=== PATIENT | female | born 1985 | race Two or more races ===

== ENCOUNTER → 2016-06-08 | Outpatient (CLI) | payer MEDICARE ==
[~2016-06-08] MED LIST: ACETAMINOPHEN325 MG PO; AUGMENTIN875 MG PO; BUPROBAN150 MG PO; BUSPAR5 MG PO; BUSPIRONE HCL15 MG PO; CARAFATE1 GM PO; CELEXA20 MG PO; CELEXA40 MG PO; CELLCEPT250 M1 PO; CELLCEPT500 MG PO; COLACE100 MG PO; CYMBALTA60 MG PO; DELTASONE1 MG PO; DELTASONE2.5 MG PO; DELTASONE5 MG PO; DEXILANT60 MG PO; DULCOLAX10 MG R; FERROUS SULFAT325 MG PO; FLORASTOR250 MG PO; GABAPENTIN300 MG PO; KLONOPIN1 M1 PO; LASIX40 M1 PO; LASIX80 MG PO; LEXAPRO20 MG PO; MIRALAX17 GM PO; NAPROSYN250 MG; NAPROSYN500 MG PO; NEURONTIN600 MG PO; NORCO 5-325 MG1 TAB PO; NUCYNTA50 MG PO; PAIN RELIEVER325 MG PO; PHENERGAN25 M1 PO; PLAQUENIL200 M1 PO; PLAQUENIL200 MG PO; PRINIVIL5 MG PO; PROAIR HFA8.5 GM INH; PROLIA60 MG/ML IM; ROBITUSSIN DM120 ML PO; TOPROL XL25 MG PO; ULTRAM50 MG PO; WELLBUTRIN XL300 M2 PO; XANAX0.5 MG PO; XARELTO10 MG; XARELTO20 MG PO; Z-PAK250 MG PO; ZITHROMAX500 MG PO; ZOFRAN8 M1 PO
[2016-06-08 15:17] LABS: BASOPHIL # 0.1 K/uL (0.0-0.2); BASOPHIL % 0.5 %; EOSINOPHIL # 0.1 K/uL (0.0-0.5); EOSINOPHIL % 0.7 %; HEMATOCRIT 42.8 % (33.0-46.0); HEMOGLOBIN 13.8 g/dL (11.0-15.0); IMMATURE GRANULOCYTE % 0.2 %; LYMPHOCYTE # 1.3 K/uL (0.8-4.0); LYMPHOCYTE % 10.3 %; MCH 31.5 pg (27.0-34.0); MCHC 32.2 gm/dL (32.0-36.5); MCV 97.7 fl (83.0-98.0); MONOCYTE # 0.4 K/uL (0.0-1.0); MONOCYTE % 3.2 %; MPV 9.7 fl (9.4-12.4); NEUTROPHIL # (ANC) 10.5 K/uL (1.8-7.8); NEUTROPHIL % 85.1 %; NRBC % 0 /100WBC (0-0.00); PLATELET COUNT 381 K/uL (150-450); RBC 4.38 M/uL (3.50-5.00); RDW-CV 14.7 % (11.9-14.6); WBC 12.3 K/uL (4.0-11.0)
[2016-06-08 15:29] LABS: PROTIME 10.4 SECONDS (9.6-11.1)
[2016-06-08 15:39] LABS: ALBUMIN 3.8 gm/dL (3.5-5.0); ANION GAP 10.8 (10.0-19.0); CALCIUM 8.3 mg/dL (8.5-10.5); CREATININE 1.3 mg/dL (0.5-1.1); POTASSIUM 3.8 mMol/L (3.7-5.1); TOTAL BILIRUBIN 0.4 mg/dL (0.0-1.5)
[2016-06-08 15:48] LABS: TOTAL PROTEIN 9.4 g/dL (6.0-8.4)
== END | disposition disaster alternative care site (69) ==
LOC: GOPD 12:30
PROVIDERS: Internal Medicine
PROC: 0W9G3ZZ Drainage of Peritoneal Cavity, Percutaneous Approach (ICD-10-PCS; principal; 2016-06-08)
DX: R18.8 Other ascites (principal)

== ENCOUNTER 2016-09-05 07:51 | Emergency (ER) | payer MEDICARE ==
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
[2016-09-05 08:43] LABS: BILIRUBIN URINE NEGATIVE (NEGATIVE); BLOOD URINE 25 /UL (NEGATIVE); COLOR URINE STRAW (YELLOW); GLUCOSE URINE NEGATIVE (NEGATIVE); KETONE URINE NEGATIVE (NEGATIVE); LEUKOCYTES URINE NEGATIVE /UL (NEGATIVE); NITRITE URINE NEGATIVE (NEGATIVE); PROTEIN URINE 15 mg/dL (NEGATIVE); SPEC GRAVITY URINE 1.015 (1.003-1.035); TURBIDITY URINE CLEAR (CLEAR); UROBILINOGEN URINE NORMAL (NORMAL)
[2016-09-05 08:45] LABS: BASOPHIL # 0.1 K/uL (0.0-0.2); BASOPHIL % 0.4 %; EOSINOPHIL # 0.2 K/uL (0.0-0.5); EOSINOPHIL % 1.3 %; HEMATOCRIT 39.2 % (33.0-46.0); HEMOGLOBIN 12.9 g/dL (11.0-15.0); IMMATURE GRANULOCYTE # 0.1 K/uL (0.0-0.3); IMMATURE GRANULOCYTE % 0.5 %; LYMPHOCYTE # 1.3 K/uL (0.8-4.0); LYMPHOCYTE % 9.9 %; MCH 31.9 pg (27.0-34.0); MCHC 32.9 gm/dL (32.0-36.5); MONOCYTE # 1.1 K/uL (0.0-1.0); MONOCYTE % 8.5 %; MPV 9.8 fl (9.4-12.4); NEUTROPHIL # (ANC) 10.2 K/uL (1.8-7.8); NEUTROPHIL % 79.4 %; NRBC % 0 /100WBC (0-0.00); PLATELET COUNT 309 K/uL (150-450); RBC 4.04 M/uL (3.50-5.00); RDW-CV 13.6 % (11.9-14.6); WBC 12.9 K/uL (4.0-11.0)
[2016-09-05 08:55] LABS: BACTERIA URINE FEW (NEGATIVE); RBC URINE 0-2 #/HPF (NEGATIVE); WBC URINE 0-2 #/HPF (NEGATIVE)
[2016-09-05 09:08] LABS: ALBUMIN 3.5 gm/dL (3.5-5.0); ALK PHOS 57 IU/L (33-138); ALT 17 IU/L (12-78); ANION GAP 9.6 (10.0-19.0); AST 10 IU/L (10-40); BLOOD UREA NITROGEN 27 mg/dL (6-24); CALCIUM 8.4 mg/dL (8.5-10.5); CHLORIDE 107 mMol/L (96-110); CO2 26 mMol/L (22-32); ESTIMATED GFR (MDRD EQUATION) > 60; POTASSIUM 3.6 mMol/L (3.7-5.1); SODIUM 139 mMol/L (135-145); TOTAL BILIRUBIN 0.3 mg/dL (0.0-1.5); TOTAL PROTEIN 7.6 g/dL (6.0-8.4)
== END 2016-09-05 11:51 | disposition disaster alternative care site (69) ==
LOC: GMED 07:51
PROVIDERS: Emergency Medicine
DX: N83.202 Unspecified ovarian cyst, left side (principal); N83.201 Unspecified ovarian cyst, right side; F17.210 Nicotine dependence, cigarettes, uncomplicated; M32.9 Systemic lupus erythematosus, unspecified; F32.9 Major depressive disorder, single episode, unspecified; E66.9 Obesity, unspecified; F41.9 Anxiety disorder, unspecified; I10 Essential (primary) hypertension; G89.29 Other chronic pain; Z86.718 Personal history of other venous thrombosis and embolism; Z98.890 Other specified postprocedural states; Z88.1 Allergy status to other antibiotic agents; Z79.899 Other long term (current) drug therapy
CPT/HCPCS: J1885; J2001; J2405; J3010; J7030